=== PATIENT | male | born 1975 | race African-American/Black ===

== ENCOUNTER 2017-10-13 16:00 | Emergency (ER) | payer SELFPAY ==
[~2017-10-13] VITALS: Ht 185.4 cm; Wt 100.0 kg
[2017-10-13 16:02] VITALS: BP 118/86
== END 2017-10-13 16:41 | disposition left against medical advice (07) ==
LOC: ER 16:34
DX: F32.9 Major depressive disorder, single episode, unspecified (principal); Z53.21 Procedure and treatment not carried out due to patient leaving prior to being seen by health care provider